=== PATIENT | male | born 1960 | race Caucasian/White ===

== ENCOUNTER 2018-08-06 12:19 | Outpatient (CLI) | payer OTHER | END 2018-08-06 12:20 | disposition critical access hospital (66) | LOC: EMS 12:19 | PROVIDERS: ATTEND Surgery | DX: R11.2 Nausea with vomiting, unspecified (principal) | CPT/HCPCS: A0425; A0427 ==

== ENCOUNTER 2018-08-06 12:41 | Emergency (ER) | payer OTHER ==
--- NOTE | 2018-08-06 13:01 | ED Physician Documentation ---
PD HPI FOCAL NEURO - Stated complaint Stated Complaint: N/V - Chief complaint Chief Complaint: Neuro - History obtained from History obtained from: Patient, Family, EMS - History of Present Illness Timing - onset: Today (This is a 58-year-old Gentleman who has been sick with URI, congestion for a couple of weeks. Earlier in the week he had a single episode of brief dizziness. Today he had one at home that started while coughing and had a subsequent 1 that started while reaching for something at [employer]. The one earlier today lasted 5 minutes and the second 1 lasted about 45 minutes. It was a sensation of being off balance and spinning like he was drunk. He subsequently vomited. He denies headache with this. He says he is not really dizzy anymore but he vacillates a little bit when I asked him that.) Review of Systems Ten Systems: 10 systems reviewed and negative Constitutional: denies: Fever, Chills Ears: denies: Loss of hearing, Ear pain, Drainage/discharge Nose: reports: Rhinorrhea / runny nose, Congestion, Sinus pressure / pain Throat: denies: Sore throat Respiratory: reports: Cough (chronic, from smoking). denies: Dyspnea PD PAST MEDICAL HISTORY - Past Medical History Past Medical History: No Respiratory: Tuberculosis GI: Other - Past Surgical History Past Surgical History: Yes - Present Medications Home Medications: Ambulatory Orders Medication Instructions Recorded Confirmed RX: Azithromycin [Zithromax] 1 tab PO DAILY #6 tablet 08/06/18 RX: Meclizine HCl 25 mg PO Q6H PRN #20 tab.chew 08/06/18 - Allergies Allergies/Adverse Reactions: Allergies Allergy/AdvReac Type Severity Reaction Status Date / Time Penicillins Allergy Anaphylaxis Verified 08/06/18 12:52 - Social History Does the pt smoke?: Yes Smoking Status: Current every day smoker Does the pt drink ETOH?: No Does the pt have substance abuse?: No - Family History Family history: reports: Non contributory - Immunizations Immunizations are current?: No PD ED PE NORMAL - Vitals Vital signs reviewed: Yes - General General: Alert and oriented X 3, Other (Anxious and emotional) - HEENT HEENT: PERRL, EOMI (With slight nystagmus on far left lateral gaze) - Neck Neck: Supple, no meningeal sign, No bony TTP - Cardiac Cardiac: RRR, No murmur - Respiratory Respiratory: No respiratory distress, Clear bilaterally - Abdomen Abdomen: Soft, Non tender - Back Back: No CVA TTP, No spinal TTP - Derm Derm: Normal color, Warm and dry - Neuro Neuro: Alert and oriented X 3, supervisor stave finishing 2-12 intact, No motor deficit, No sensory deficit, Normal speech, Other (Normal aivnhd-fr-vyzi, uptx-uy-pvzl, and rapid alternating movements.) Eye Opening: Spontaneous Motor: Obeys Commands Verbal: Oriented GCS Score: 15 - Psych Psych: Normal mood Results - Vitals Vitals: Vital Signs - 24 hr 08/06/18 08/06/18 08/06/18 12:46 13:30 14:28 Temperature 36.5 C Heart Rate 67 77 68 Respiratory 18 18 16 Rate Blood Pressure 105/84 H 116/74 92/74 O2 Saturation 100 99 98 08/06/18 08/06/18 16:27 17:10 Temperature Heart Rate 61 67 Respiratory 16 16 Rate Blood Pressure 111/64 107/67 O2 Saturation 97 98 Oxygen O2 Source Room air - Labs Labs: Laboratory Tests 08/06/18 08/06/18 13:11 13:11 WBC 11.2 H RBC 4.42 L Hgb 13.5 L Hct 40.4 L MCV 91.4 MCH 30.6 MCHC 33.5 RDW 12.8 Plt Count 254 MPV 8.4 Neut # (Auto) 9.1 H Lymph # (Auto) 1.5 [place] # (Auto) 0.4 Eos # (Auto) 0.1 Baso # (Auto) 0.1 Absolute Nucleated RBC 0.00 Nucleated RBC % 0.0 Sodium 137 Potassium 4.0 Chloride 100 L Carbon Dioxide 25 Anion Gap 12.0 BUN 12 Creatinine 0.7 Estimated GFR (MDRD) 116 Glucose 129 H Calcium 8.8 Total Bilirubin 0.7 AST 19 ALT 15 Alkaline Phosphatase 57 Total Protein 6.6 L Albumin 3.8 Globulin 2.8 Albumin/Globulin Ratio 1.4 Lipase 26 - Rads (name of study) CT Head Radiology: EMP read contemporaneously (12 mm focal hyperdensity left posterior parietal cortex, could be meningioma, focal hemorrhage, focal mass or cavernoma.) MRI Brain Radiology: EMP read contemporaneously (Left temporoparietal region lesion most likely meningioma. Moderate right mastoid effusion) PD MEDICAL DECISION MAKING - ED course ED course: 50-year-old gentleman with what sounds most like BPPV, head CT showed an abnormality which was followed with MRI and likely a meningioma, given its location I suspect it was an incidental finding but follow-up was advised. He was counseled on the Tung maneuver. Departure - Departure Disposition: 01 Home, Self Care Clinical Impression: Vertigo, Meningioma Condition: Good Record reviewed to determine appropriate education?: Yes Instructions: Meclizine, ED Vertigo Unspecified Prescriptions: RX: Azithromycin [Zithromax] 1 tab PO DAILY #6 tablet RX: Meclizine HCl 25 mg PO Q6H PRN #20 tab.chew PRN Reason: Dizziness Comments: As discussed, you have what is likely a meningioma in the left parietal area. Recommend repeat MRI in 3 months to confirm stability. Also you have some fluid in the right mastoid sinus, for this we are starting you on some antibiotics. You should follow-up with an ear nose and throat physician. The closest is in [place], the phone number is [phone]. Discharge Date/Time: 08/06/18 17:12
[2018-08-06 13:15] LABS: BASOPHILS # (AUTO) 0.1 10^3/uL (0.0-0.1); BASOPHILS % (AUTO) 1.1 %; EOSINOPHILS # (AUTO) 0.1 10^3/uL (0.0-0.7); EOSINOPHILS % (AUTO) 0.6 %; HGB - HEMOGLOBIN 13.5 g/dL (14.0-18.0); LYMPHOCYTES # (AUTO) 1.5 10^3/uL (1.5-3.5); LYMPHOCYTES % (AUTO) 13.7 %; MEAN CORPUSCULAR HEMOGLOBIN 30.6 pg (27.0-31.0); MEAN CORPUSCULAR HGB CONC 33.5 g/dL (32.0-36.0); MEAN CORPUSCULAR VOLUME 91.4 fL (80.0-94.0); MEAN PLATELET VOLUME 8.4 fL (7.4-11.4); MONOCYTES # (AUTO) 0.4 10^3/uL (0.0-1.0); MONOCYTES % (AUTO) 3.8 %; NEUTROPHILS # (AUTO) 9.1 10^3/uL (1.5-6.6); NEUTROPHILS % (AUTO) 80.8 %; PLT - PLATELET COUNT 254 10^3/uL (130-450); RED BLOOD COUNT 4.42 10^6/uL (4.70-6.10); RED CELL DISTRIBUTION WIDTH 12.8 % (12.0-15.0); WHITE BLOOD COUNT 11.2 x10^3/uL (4.8-10.8)
[2018-08-06 13:26] LABS: ALBUMIN 3.8 g/dL (3.2-5.5); ALBUMIN/GLOBULIN RATIO 1.4 (1.0-2.2); BILIRUBIN,TOTAL 0.7 mg/dL (0.2-1.0); CALCIUM 8.8 mg/dL (8.5-10.3); CREATININE 0.7 mg/dL (0.6-1.2); TOTAL PROTEIN 6.6 g/dL (6.7-8.2)
--- NOTE | 2018-08-06 14:05 | CT Report ---
Reason: vomiting, vertigo Procedure Date: 08/06/2018 Accession Number: [id number] / [id number] Procedure: CT - HEAD WO CPT Code: FULL RESULT: EXAM: CT HEAD EXAM DATE: 08/06/2018 01:40 PM. CLINICAL HISTORY: Vertigo COMPARISON: None. TECHNIQUE: Multiaxial CT images were obtained from the foramen magnum to the vertex. Reformats: Sagittal and coronal. IV contrast: None. In accordance with CT protocol optimization, one or more of the following dose reduction techniques were utilized for this exam: automated exposure control, adjustment of mA and/or KV based on patient size, or use of iterative reconstructive technique. FINDINGS: Parenchyma: A focal hyperdensity seen in left posterior parietal cortex measuring 12 mm (image 16 on series 3). No midline shift, or CT findings of infarction. Son-white differentiation is distinct. Extraaxial Spaces: Normal for age. No subdural or epidural collections identified. Ventricles: Normal in size and position. Sinuses and Orbits: Imaged paranasal sinuses, orbits, and mastoids show no significant abnormality. Bones: No evidence of fracture or calvarial defect. Other: None. IMPRESSION: A 12 mm focal hyperdensity seen in left posterior parietal cortex. Differentials include an extra axial meningioma, focal hemorrhage, focal cortical mass/oligodendroglioma, cavernoma. Further evaluation to be considered on contrast enhanced MRI brain. RADIA The call report notification system was initiated by Dr. Terrie Rowe at 01:59 PM on 08/06/2018. The above call report findings were discussed with Eriberto Scott by Dr. Terrie Rowe at 02:03 PM on 08/06/2018.
[2018-08-06] MEDS ORDERED: GADOBUTROL 7.5 MMOL/7.5 ML VIAL IVP ONE (16:09)
[2018-08-06] MEDS ORDERED: GADOBUTROL 7.5 MMOL/7.5 ML VIAL ONE (16:10)
--- NOTE | 2018-08-06 16:55 | MRI Report ---
Reason: vertigo abn head CT Procedure Date: 08/06/2018 Accession Number: [id number] / [id number] Procedure: MRI - Brain W/WO CPT Code: FULL RESULT: EXAM: MRI BRAIN WITHOUT AND WITH CONTRAST EXAM DATE: 08/06/2018 04:17 PM. CLINICAL HISTORY: 58-year-old presenting with severe dizziness, nausea, and emesis. Evaluate intracranial pathology. COMPARISON: CT head 08/06/2018. TECHNIQUE: Multiplanar, multisequence T1-weighted and fluid-sensitive MR sequences of the brain were performed. Sequences optimized for routine evaluation. Other: None. IV Contrast: 7 mL Gadavist. FINDINGS: Brain Volume: Normal for age. Parenchyma: No acute hemorrhage, mass, or infarct. No white matter lesions identified. No abnormal enhancement. Ventricles/Cisterns: There is an extra-axial, dural-based, avidly-enhancing lesion overlying the left temporal parietal region, measuring 13 x 14 x 14 mm (CC by TR by AP). There is evidence of enhancing dural tail. The lesion demonstrates T1/T2 signal hypointensity and susceptibility artifact. No other definite abnormal extra-axial fluid collection/mass seen. No parenchymal reactive edema. Ventricles appear age-appropriate. No evidence of interventricular hemorrhage. Orbits: Symmetric and unremarkable. Sella Turcica: The pituitary gland, cavernous sinuses, suprasellar cistern and optic chiasm are unremarkable. IAC: Symmetric and unremarkable. Vasculature: Normal signal flow void is seen in the major arterial structures at the skull base. The dural sinuses are patent and enhance normally. Sinuses: Mild mucosal thickening of the maxillary sinuses and moderate mucosal thickening of the ethmoid air cells. Moderate right mastoid effusion. Bones: No focal pathologic appearing marrow signal changes. Other: None. IMPRESSION: 1.There is a left temporal parietal region extra-axial, dural-based, avidly-enhancing lesion, measuring 13 x 14 x 14 mm (CC by TR by AP) that most likely represents a meningioma. Possibility of dural metastasis or lymphoma is considered unlikely. 2. No acute infarct, acute intracranial hemorrhage, additional mass, hydrocephalus, or midline shift. No additional abnormal postcontrast enhancement. 3. Moderate right mastoid effusion. RADIA
[2018-08-06 17:11] VITALS: BP 107/67
== END 2018-08-06 17:12 | disposition home or self-care (01) ==
LOC: EDUNIT# → ED 12:41
DX: R42 Dizziness and giddiness (principal); D32.0 Benign neoplasm of cerebral meninges; Z86.11 Personal history of tuberculosis; F17.200 Nicotine dependence, unspecified, uncomplicated
CPT/HCPCS: 36415; 70450; 70553; 80053; 83690; 85025; 99283; 99284; A9585

== ENCOUNTER 2021-08-10 14:26 | Emergency (ER) | payer OTHER ==
[2021-08-10 14:32] VITALS: BP 124/72
[2021-08-10] MEDS ORDERED: PROPARACAINE 0.5% OPHTH DROPS 15 ML EACHEYE STA (14:33)
--- NOTE | 2021-08-10 14:57 | ED Physician Documentation ---
PD HPI OPHTHO - Stated complaint Stated Complaint: LT EYE PX - Chief complaint Chief Complaint: Heent - History obtained from History obtained from: Patient - History of Present Illness Timing - onset: Enter time (1400), Today Timing - duration: Minutes Timing - details: Abrupt onset, Still present Location: Left Associated symptoms: Redness, Swelling. No: Tearing, Discharge, FB sensation, Photophobia, Decreased vision, Loss of vision, Headache Contributing factors: Blunt trauma Similar symptoms before: Has not had sx before Recently seen: Not recently seen - Additional information Additional information: 61-year-old male with a prior history of meningioma and hernia repair has had prior TB. Today he was in his garden bent down to pick a dandelion and when he turned his head he hit his eye against a branch. He states he had immediate pain associated with this he does not have any change to his vision and noted some swelling to his eye he denies foreign body sensation and otherwise has resolution of his pain as well. He has brought directly to the hospital by his after this happened with an impressive appearing subconjunctival hemorrhage. Review of Systems Constitutional: denies: Fever Eyes: denies: Loss of vision, Decreased vision, Photophobia, Discharge, Irritation Ears: denies: Ear pain Nose: denies: Congestion Throat: denies: Sore throat Respiratory: denies: Cough GI: denies: Vomiting PD PAST MEDICAL HISTORY - Past Medical History Past Medical History: Yes Respiratory: Tuberculosis GI: Other - Past Surgical History Past Surgical History: Yes - Present Medications Home Medications: Ambulatory Orders Medication Instructions Recorded Confirmed Azithromycin [Zithromax] 1 tab PO DAILY #6 tablet 08/06/18 Meclizine HCl 25 mg PO Q6H PRN #20 tab.chew 08/06/18 - Allergies Allergies/Adverse Reactions: Allergies Allergy/AdvReac Type Severity Reaction Status Date / Time Penicillins Allergy Anaphylaxis Verified 08/10/21 14:32 - Social History Does the pt smoke?: Yes Smoking Status: Current every day smoker Does the pt drink ETOH?: No Does the pt have substance abuse?: No - Immunizations Immunizations are current?: No PD ED PE NORMAL - Vitals Vital signs reviewed: Yes (Normal) - General General: Alert and oriented X 3, No acute distress, Well developed/nourished - HEENT HEENT: PERRL, EOMI, Other (There is an obvious left subconjunctival hemorrhage to the nasal aspect of the left eye. There is no distortion of the iris there is no distortion of the globe and the extraocular movements are without restriction.) - Neck Neck: Supple, no meningeal sign, No bony TTP - Respiratory Respiratory: No respiratory distress - Derm Derm: Normal color, Warm and dry, No rash - Extremities Extremities: No deformity, No edema - Neuro Neuro: Alert and oriented X 3, vice president global advertising sales 2-12 intact, No motor deficit, No sensory deficit, Normal speech Eye Opening: Spontaneous Motor: Obeys Commands Verbal: Oriented GCS Score: 15 - Psych Psych: Normal mood, Normal affect Results - Vitals Vitals: Vital Signs - 24 hr 08/10/21 08/10/21 14:30 14:32 Temperature 36.9 C 36.9 C Heart Rate 67 67 Respiratory 16 Rate Blood Pressure 124/72 124/72 O2 Saturation 99 99 Oxygen O2 Source Room air PD MEDICAL DECISION MAKING - ED course Complexity details: considered differential, d/w patient ED course: 61-year-old male with blunt trauma to the left eye has a very impressive appearing subconjunctival hemorrhage without change in his visual acuity without distortion of his iris and without obvious globe rupture. Departure - Departure Disposition: 01 Home, Self Care Clinical Impression: Subconjunctival hemorrhage of left eye Condition: Stable Instructions: ED Eye Injury Subconj Hemorrhage Follow-Up: Adryan Mendoza MD [Provider Admit Priv/Credential] - Comments: Vince, today it looks like you have a subconjunctival hemorrhage to your left eye. This is very impressive looking but should self resolve within the next 2 weeks. If you have worsening of your symptoms or develop new symptoms follow-up with Dr. Mendoza. Our expectation is for a benign course.
[2021-08-10] MEDS ORDERED: PROPARACAINE 0.5% OPHTH DROPS 15 ML LEFTEYE STA (15:04)
== END 2021-08-10 15:26 | disposition home or self-care (01) ==
LOC: ED 14:26
DX: F17.200 Nicotine dependence, unspecified, uncomplicated (principal); H11.32 Conjunctival hemorrhage, left eye
CPT/HCPCS: 99282

== ENCOUNTER 2022-07-06 16:25 | Emergency (ER) | payer OTHER ==
[2022-07-06 16:32] VITALS: BP 125/82
--- NOTE | 2022-07-06 16:54 | ED Physician Documentation ---
History of Present Illness - Stated complaint Stated Complaint: RT FINGERS NUMBNESS - Chief complaint Chief Complaint: Ext Problem - History obtained from History obtained from: Patient - History of Present Illness Timing: Today Pain level max: 0 Pain level now: 0 - Additonal information Additional information: 62-year-old male states that 6 weeks ago he was diagnosed with a mallet finger of the right fifth digit. He states that he was placed into a wooden splint. He states that he has been maintained in that splint. Has not seen his doctor for repeat evaluation. He states he now has some numbness in the fifth digit as well as on the medial side of the fourth digit, closest to the fifth digit. Nothing makes it better or worse. Review of Systems Constitutional: denies: Fever PD PAST MEDICAL HISTORY - Past Medical History Past Medical History: Yes Respiratory: Tuberculosis GI: Other - Past Surgical History Past Surgical History: Yes - Present Medications Home Medications: Ambulatory Orders Medication Instructions Recorded Confirmed Azithromycin [Zithromax] 1 tab PO DAILY #6 tablet 08/06/18 Meclizine HCl 25 mg PO Q6H PRN #20 tab.chew 08/06/18 - Allergies Allergies/Adverse Reactions: Allergies Allergy/AdvReac Type Severity Reaction Status Date / Time Penicillins Allergy Anaphylaxis Verified 07/06/22 16:32 - Social History Does the pt smoke?: Yes Smoking Status: Current every day smoker Does the pt drink ETOH?: No Does the pt have substance abuse?: No - Immunizations Immunizations are current?: No PD ED PE NORMAL - Vitals Vital signs reviewed: Yes - General General: Alert and oriented X 3, No acute distress - HEENT HEENT: Moist mucous membranes - Derm Derm: Warm and dry - Extremities Extremities: Other (R hand - Normal sensation over the hand, mild decreased sensation over distal 5th digit. Brisk cap refill. o/w normal exam. slight mallet deformity to the 5th dgit.) - Neuro Neuro: Alert and oriented X 3 Results - Vitals Vitals: Vital Signs - 24 hr 07/06/22 16:29 Temperature 36.7 C Heart Rate 92 Respiratory 16 Rate Blood Pressure 125/82 H O2 Saturation 100 Oxygen O2 Source Room air PD Medical Decision Making - ED course Complexity details: considered differential, d/w patient ED course: Patient was changed to an extension splint for the mallet finger. Recommend that he follow-up with orthopedics and occupational therapy. May benefit from a thermoplastic splint. We will have him follow-up with his doctor for a referral to orthopedics and occupational therapy. Suspect that the mild decrease in sensation is secondary to the type of splint he was wearing, suspect that this will improve with the change in splint. Patient counseled regarding signs and symptoms for which I believe and urgent re-evaluation would be necessary. Patient with good understanding of and agreement to plan and is comfortable going home at this time This document was made in part using voice recognition software. While efforts are made to proofread this document, sound alike and grammatical errors may occur. Departure - Departure Disposition: 01 Home, Self Care Clinical Impression: Mallet finger Qualifiers: Laterality: right Qualified Code(s): M20.011 - Mallet finger of right finger(s) Condition: Good Instructions: ED Fx Mallet Finger Follow-Up: JESSICA GOMEZ ARNP [Primary Care Provider] - [facility] [Provider Group] Comments: Please follow-up with your doctor for further care. You should be in an extension splint. You were placed into an extension splint today. Please leave this on. You can obtain a larger size from [employer]. You likely would need a size 3. Your doctor should also refer you to occupational therapy/physical therapy. A thermoplastic splint may be needed. Orthopedist generally handle these injuries as well, I have placed the information for our orthopedic services here. Your insurance may require a referral from your primary care provider. Please return if you worsen. [facility] [phone], ext. [phone] FAX: [phone] Discharge Date/Time: 07/06/22 17:04
== END 2022-07-06 17:04 | disposition home or self-care (01) ==
LOC: ED 16:25
DX: M20.011 Mallet finger of right finger(s) (principal); F17.200 Nicotine dependence, unspecified, uncomplicated
CPT/HCPCS: 99281; 99283

== ENCOUNTER 2022-08-01 15:56 | Outpatient (CLI) | payer OTHER ==
--- NOTE | 2022-08-01 18:26 | XRAY Report ---
PROCEDURE: Finger(s) RT INDICATIONS: UNSPECIFIED INJURY OF RT WRIST, HAND, AND FINGERS TECHNIQUE: AP hand, 2 views of the fifth finger(s) acquired. COMPARISON: None. FINDINGS: Bones: No fractures or dislocations can be seen of the fifth finger or elsewhere. No suspicious bon y lesions. Age-appropriate degenerative changes are seen. Soft tissues: No suspicious soft tissue calcifications or masses. IMPRESSION: A displaced fracture is not identified. Reviewed by: Lopez Soriano MD on 08/01/2022 5:25 PM AKRUBY Approved by: Lopez Soriano MD on 08/01/2022 5:25 PM SYED Station ID: [id number]
== END 2022-08-01 15:57 | disposition home or self-care (01) ==
LOC: DI 15:56
PROVIDERS: ATTEND Registered Nurse
DX: S69.91XA Unspecified injury of right wrist, hand and finger(s), initial encounter (principal)

== ENCOUNTER 2023-02-09 07:56 | Outpatient (CLI) | payer OTHER ==
--- NOTE | 2023-02-09 11:01 | MRI Report ---
PROCEDURE: SHOULDER WO - RT INDICATIONS: RIGHT SHOULDER PAIN TECHNIQUE: Noncontrast oblique coronal T2 fast spin echo with fat saturation, oblique sagittal T1 spin echo and T2 fast spin echo with fat saturation, axial T1 spin echo and T2 fast spin echo with fat saturation t hrough the shoulder. COMPARISON: None. FINDINGS: Image quality: Excellent. Rotator cuff: The supraspinatus, infraspinatus, and subscapularis tendons appear intact throughout. There is mild to moderate tendinopathy involving the supra and infraspinatus tendons. No rotator cuf f muscle atrophy on sagittal images. Bones and bursae: No bone marrow contusions or fractures. There is moderate AC joint degenerative ch deandre present. No significant glenohumeral joint degenerative change is seen. The acromion demonstrate s conventional anatomy, without an os acromiale. No pathologic subacromial/subdeltoid bursal fluid i s present. Capsule and soft tissues: In the absence of intra-articular contrast, the labrum and glenohumeral li gaments appear intact. The long head of the biceps tendon demonstrates normal location and morpholog y. The rotator interval appears normal, without fibrosis. The coracohumeral ligament is normal in t hickness. IMPRESSION: 1. Omfo-qf-frmlqmvf tendinopathy involving the supra and infraspinatus tendon. 2. Moderate AC joint degenerative change. Reviewed by: Alexis Duggan MD on 02/09/2023 11:00 AM PST Approved by: Alexis Duggan MD on 02/09/2023 11:00 AM PST Station ID: [id number]
== END 2023-02-09 07:57 | disposition home or self-care (01) ==
LOC: DI 07:56
PROVIDERS: ATTEND Physician Assistant
DX: M19.011 Primary osteoarthritis, right shoulder (principal); M75.91 Shoulder lesion, unspecified, right shoulder

== ENCOUNTER 2023-03-22 13:54 | Emergency (ER) | payer OTHER ==
[2023-03-22 14:12] VITALS: BP 105/68; O2SAT 100
--- NOTE | 2023-03-22 18:16 | ED Physician Documentation ---
History of Present Illness - Stated complaint Stated Complaint: LUMP LT KNEE - Chief complaint Chief Complaint: Ext Problem - History obtained from History obtained from: Patient - History of Present Illness Timing: Today Pain level max: 2 Pain level now: 0 - Additonal information Additional information: Patient states had swelling behind the left knee today. No injury. no redness. seen at the walk in clinic and sent here for possible DVT. no calf swelling. no surgery. no immobilization. No history of same. Review of Systems Constitutional: denies: Fever, Chills Cardiac: denies: Chest pain / pressure Respiratory: denies: Dyspnea Skin: denies: Rash PD PAST MEDICAL HISTORY - Past Medical History Past Medical History: Yes Respiratory: Tuberculosis GI: Other - Past Surgical History Past Surgical History: Yes - Present Medications Home Medications: Ambulatory Orders Medication Instructions Recorded Confirmed Azithromycin [Zithromax] 1 tab PO DAILY #6 tablet 08/06/18 Meclizine HCl 25 mg PO Q6H PRN #20 tab.chew 08/06/18 - Allergies Allergies/Adverse Reactions: Allergies Allergy/AdvReac Type Severity Reaction Status Date / Time Penicillins Allergy Anaphylaxis Verified 03/22/23 14:10 - Social History Does the pt smoke?: Yes Smoking Status: Current every day smoker Does the pt drink ETOH?: Yes Does the pt have substance abuse?: No - Immunizations Immunizations are current?: No - POLST Patient has POLST: No PD ED PE NORMAL - Vitals Vital signs reviewed: Yes - General General: Alert and oriented X 3, No acute distress - HEENT HEENT: Moist mucous membranes - Neck Neck: Supple, no meningeal sign - Derm Derm: Warm and dry - Extremities Extremities: Other (L knee - Normal examination of the left knee. No abnormal swelling. No calf pain. No calf tenderness. No joint effusion. ACL, MCL, PCL, LCL are intact. No bony tenderness. Full range of motion.) - Neuro Neuro: Alert and oriented X 3 Results - Vitals Vitals: Vital Signs - 24 hr 03/22/23 14:07 Temperature 36.6 C Heart Rate 87 Respiratory 14 Rate Blood Pressure 105/68 O2 Saturation 100 Oxygen O2 Source Room air - Rads (name of study) Duplex ultrasound left lower extremity Relevant Findings:: Final report received, See rad report PD Medical Decision Making - ED course Complexity details: reviewed results, re-evaluated patient, considered differential, d/w patient ED course: No acute findings on ultrasound. Normal examination of the knee here. He states that he feels the swelling has resolved that was there earlier. Unclear etiology. Possible Evans's cyst? We will have him follow-up with his doctor for further care. No evidence of infection. No DVT. Patient counseled regarding signs and symptoms for which I believe and urgent re-evaluation would be necessary. Patient with good understanding of and agreement to plan and is comfortable going home at this time This document was made in part using voice recognition software. While efforts are made to proofread this document, sound alike and grammatical errors may occur. Departure - Departure Disposition: 01 Home, Self Care Clinical Impression: Knee swelling Condition: Good Instructions: ED Cyst Evans Follow-Up: your,doctor in 1 week [Other] Comments: Please follow-up with your doctor for further care. Your ultrasound does not show any evidence of blood clot today. It is possible that you could have a small Evans's cyst, we do not see any fluid collection currently. You can utilize Motrin or Tylenol as needed for any pain. Please return if you worsen. Forms: PCP List Discharge Date/Time: 03/22/23 18:20
--- NOTE | 2023-03-22 19:56 | Ultrasound Report ---
PROCEDURE: Duplex Ext Veins Left INDICATIONS: L LE swelling TECHNIQUE: Real-time imaging, as well as color and pulse Doppler interrogation, were performed of the lower extr emity deep veins from the inguinal ligament to the popliteal fossa. Attempted visualization of the ca lf veins was performed. COMPARISON: None. FINDINGS: The deep veins are normally compressible, and free of intraluminal thrombus. Color and pu lse Doppler demonstrate normal phasic intraluminal flow. There is normal augmentation response to di stal compression maneuver. IMPRESSION: No deep venous thrombosis of the visualized lower extremity. Reviewed by: Padmini Sorto MD on 03/22/2023 7:54 PM PST Approved by: Padmini Sorto MD on 03/22/2023 7:54 PM PST Station ID: [id number]
== END 2023-03-22 18:20 | disposition home or self-care (01) ==
LOC: ED 13:54
DX: R22.42 Localized swelling, mass and lump, left lower limb (principal); F17.200 Nicotine dependence, unspecified, uncomplicated
CPT/HCPCS: 99283; 99284